=== PATIENT | female | born 1965 | race Caucasian/White ===

== ENCOUNTER 2017-10-25 17:58 | Inpatient (IN) | payer BC ==
[2017-10-25] MEDS ORDERED: DILAUDID INJ ONE (18:25)
[2017-10-25] MEDS ORDERED: PHENERGAN INJ 25 MG ONE (18:25)
[2017-10-25] MEDS: DILAUDID INJ IVP PRN ×2 (18:38→22:43)
[2017-10-25] MEDS: NS 1000 ML 1,000 ML IV SCH (18:38)
[2017-10-25] MEDS: PHENERGAN INJ 25 MG IV PRN ×2 (18:39→22:40)
[2017-10-25 18:57] LABS: BASOPHILS # (AUTO) 0.1 X10^3/uL (0.0-0.1); EOSINOPHILS # (AUTO) 0.2 x10^3/uL (0.0-0.2); EOSINOPHILS % (AUTO) 2.1 % (0.9-2.9); HEMATOCRIT 36.5 % (36.0-47.0); HEMOGLOBIN 12.3 g/dL (12.0-16.0); LYMPHOCYTES # (AUTO) 1.2 X10^3/uL (1.3-2.9); LYMPHOCYTES % (AUTO) 13.5 % (21.0-51.0); MEAN CORPUSCULAR HEMOGLOBIN 26.8 pg (27.0-34.0); MEAN CORPUSCULAR HGB CONC 33.6 g/dL (33.0-35.0); MEAN CORPUSCULAR VOLUME 79.7 fL (80.0-100.0); MEAN PLATELET VOLUME 7.5 fL (7.4-11.0); MONOCYTES # (AUTO) 0.4 x10^3/uL (0.3-0.8); MONOCYTES % (AUTO) 4.6 % (0.0-13.0); NEUTROPHILS # (AUTO) 6.9 x10^3/uL (2.2-4.8); NEUTROPHILS % (AUTO) 78.8 % (42.0-75.0); PLATELET COUNT 366 X10^3/uL (150.0-450.0); RED BLOOD COUNT 4.59 X10^6/uL (3.5-5.4); RED CELL DISTRIBUTION WIDTH 15.3 % (11.6-16.5); WHITE BLOOD COUNT 8.7 X10^3/uL (3.6-10.0)
[2017-10-25 19:24] LABS: ALANINE AMINOTRANSFERASE 35 Units/L (12-78); ALBUMIN 3.5 g/dL (3.4-5.0); ALKALINE PHOSPHATASE 149 Units/L (46-116); AMYLASE 61 Units/L (25-115); ASPARTATE AMINO TRANSFERASE 17 Units/L (15-37); BLOOD UREA NITROGEN 9 mg/dL (7-18); CALCIUM 8.9 mg/dL (8.5-10.1); CARBON DIOXIDE 25.8 mmol/L (21-32); CHLORIDE 106 mmol/L (98-107); CKMB % 1.4 % (<4); COR NA(FOR HYPERGLY) 143 mmol/L (136-145); CREATINE KINASE 72 Units/L (26-192); CREATINE KINASE MB < 1.0 ng/mL (0-4.0); CREATININE 1.02 mg/dL (0.55-1.02); LIPASE 64 Units/L (73-393); SODIUM 143 mmol/L (136-145); TOTAL PROTEIN 7.4 g/dL (6.4-8.2); TROPONIN I < 0.02 ng/mL (0-1.5); eGFR BLACK RACES > 60 (>60); eGFR NON BLACK RACES > 60 (>60)
[2017-10-25 19:51] VITALS: BMI 34.5
[2017-10-25] MEDS ORDERED: FLUVIRIN IM ONE ×2 (19:51→22:30)
[2017-10-25 20:01] LABS: BILIRUBIN,URINE NEGATIVE (NEGATIVE); BLOOD/HEMOGLOBIN,URINE NEGATIVE (NEGATIVE); GLUCOSE, URINE NEGATIVE (NEGATIVE); KETONES,URINE NEGATIVE (NEGATIVE); LEUKOCYTE ESTERASE ,URINE NEGATIVE (NEGATIVE); NITRITES,URINE NEGATIVE (NEGATIVE); PROTEIN,URINE NEGATIVE (NEGATIVE); UROBILINOGEN,URINE NORMAL (NORMAL)
[2017-10-25 20:06] LABS: APPEARANCE,URINE CLEAR (CLEAR); COLOR,URINE YELLOW (YELLOW)
--- NOTE | 2017-10-25 20:17 | CT ---
HISTORY: Syncope, severe headache and nausea Study: CT brain without contrast Comparison: None Technique: Multiple axial images of the brain were obtained from the skull base to the vertex without administra tion of IV contrast. Automated exposure control (AEC) was utilized to adjust the MA and/or kV accordi ng to patient size. Findings: There is no acute intracranial hemorrhage. The brain parenchyma is normal in density. There is a CS F density mass within in the left middle cranial fossa anterior to the left temporal lobe measuring 2 .1 x 3.4 cm. It results in mass effect upon the anterior temporal lobe and partial effacement of the temporal horn of the left lateral ventricle. There is subtle scalloping of the adjacent calvarium sug gesting this is likely chronic. Except for the partial effacement of the temporal horn of the left lateral ventricle, ventricles appe ar normal without evidence of obstructive hydrocephalus. Basilar cisterns are patent. Gamez matter -w fariba matter interface is distinct. The bilateral mastoid air cells and included paranasal sinuses are predominantly clear. There is no acute osseous abnormality. IMPRESSION: 1. CSF density mass within the left middle cranial fossa, anterior to the left temporal lobe as disc ussed above. It exerts mass effect on the adjacent temporal lobe. There is subtle scalloping suggesti ve the adjacent calvarium suggesting this is likely chronic. Considerations include an arachnoid cyst or an epidermoid cyst. Further assessment with contrast-enhanced brain MRI is recommended. Depending on symptoms and clinical picture this could be performed on an outpatient basis. Prior CT exams woul d be helpful to assess for stability if available. Reported By:
[2017-10-25 20:33] LABS: RBC,URINE NONE SEEN /HPF (NEGATIVE)
[2017-10-25 20:34] LABS: AMORPHOUS SEDIMENT,UR 1+ /HPF (NEGATIVE); BACTERIA,URINE NEGATIVE /HPF (NEGATIVE); SQUAMOUS EPITHELIAL CELL,UR FEW /HPF (NEGATIVE)
[2017-10-26] MEDS: DILAUDID INJ IVP PRN ×4 (02:37→19:25)
[2017-10-26] MEDS: PHENERGAN INJ 25 MG IV PRN ×4 (02:37→17:50)
[2017-10-26 03:34] LABS: ALANINE AMINOTRANSFERASE 31 Units/L (12-78); ALBUMIN 3.4 g/dL (3.4-5.0); ALKALINE PHOSPHATASE 140 Units/L (46-116); ASPARTATE AMINO TRANSFERASE 15 Units/L (15-37); BLOOD UREA NITROGEN 8 mg/dL (7-18); CALCIUM 8.5 mg/dL (8.5-10.1); CARBON DIOXIDE 30.5 mmol/L (21-32); CHLORIDE 108 mmol/L (98-107); CREATININE 0.88 mg/dL (0.55-1.02); SODIUM 145 mmol/L (136-145); TOTAL PROTEIN 6.6 g/dL (6.4-8.2); eGFR BLACK RACES > 60 (>60); eGFR NON BLACK RACES > 60 (>60)
[2017-10-26 03:38] LABS: CKMB % 1.6 % (<4); CREATINE KINASE 64 Units/L (26-192); CREATINE KINASE MB < 1.0 ng/mL (0-4.0); TROPONIN I < 0.02 ng/mL (0-1.5)
[2017-10-26 03:41] LABS: BASOPHILS # (AUTO) 0.1 X10^3/uL (0.0-0.1); BASOPHILS % (AUTO) 1.1 % (0.2-1.0); EOSINOPHILS # (AUTO) 0.2 x10^3/uL (0.0-0.2); EOSINOPHILS % (AUTO) 2.3 % (0.9-2.9); HEMATOCRIT 35.3 % (36.0-47.0); HEMOGLOBIN 11.9 g/dL (12.0-16.0); LYMPHOCYTES # (AUTO) 2.1 X10^3/uL (1.3-2.9); LYMPHOCYTES % (AUTO) 26.2 % (21.0-51.0); MEAN CORPUSCULAR HEMOGLOBIN 27.1 pg (27.0-34.0); MEAN CORPUSCULAR HGB CONC 33.6 g/dL (33.0-35.0); MEAN CORPUSCULAR VOLUME 80.7 fL (80.0-100.0); MEAN PLATELET VOLUME 7.4 fL (7.4-11.0); MONOCYTES # (AUTO) 0.5 x10^3/uL (0.3-0.8); MONOCYTES % (AUTO) 6.2 % (0.0-13.0); NEUTROPHILS # (AUTO) 5.1 x10^3/uL (2.2-4.8); NEUTROPHILS % (AUTO) 64.2 % (42.0-75.0); PLATELET COUNT 347 X10^3/uL (150.0-450.0); RED BLOOD COUNT 4.38 X10^6/uL (3.5-5.4); RED CELL DISTRIBUTION WIDTH 15.1 % (11.6-16.5); WHITE BLOOD COUNT 7.9 X10^3/uL (3.6-10.0)
--- NOTE | 2017-10-26 04:24 | RAD ---
Acute abdominal series Indication: Severe abdominal pain with nausea Comparison: None available Findings: The trachea is midline. The cardiac silhouette is borderline enlarged. The lungs are clear without focal infiltrate or effusion. The bony thorax is unremarkable. Flat and upright evaluation of the abdomen demonstrates a normal bowel gas pattern. No pathological soft tissue mass or calcification can be observed. The bony structures are grossly intact. IMPRESSION: 1. Borderline cardiomegaly without acute airspace disease or CHF 2. No evidence for acute abdominal pathology identified. Reported By:
[2017-10-26] MEDS: NS 1000 ML 1,000 ML IV SCH ×3 (04:52→21:01)
[2017-10-26] MEDS ORDERED: ZOFRAN INJ 4 MG VIAL 16 MG, ATIVAN INJ 2 MG VIAL 1 MG, DECADRON INJ 10 MG in NS 50 ML I... IV ONE (09:15)
[2017-10-26 11:34] LABS: CKMB % 1.8 % (<4); CREATINE KINASE 56 Units/L (26-192); CREATINE KINASE MB < 1.0 ng/mL (0-4.0); TROPONIN I < 0.02 ng/mL (0-1.5)
--- NOTE | 2017-10-26 16:22 | MRI ---
HISTORY: Intractable headaches, abnormal CT scan of the brain Study: MRI of the brain done without and with IV gadolinium contrast Comparison: CT scan of the brain done 10/25/2017. Technique: Multiple imaging planes and pulse sequences were utilized in evaluating the brain by [facility] resonance imaging. Diffusion weighted imaging sequences and ADC maps were provided. Following IV gadolinium containing contrast material administration, axial and coronal T1 sequences were repeated. 20 cc of Omniscan was injected intravenously. Findings: There is a mass involving the anterior middle cranial fossa on the left. This measures about 2.1 by 2 by 3.7 cm. The mass measures CSF signal on all sequences and likely represents an arachnoid cyst. Th ere is no indication of contrast enhancement on the post contrasted sequences. Ventricular size is no rmal. There is no evidence of infarct, edema or hemorrhage. Brainstem and cerebellum are normal. IMPRESSION: Findings most compatible with arachnoid cyst involving the left anterior middle cranial fossa. No oth er findings of significance are seen. Reported By:
--- NOTE | 2017-10-26 17:29 | DR.H&P ---
H&P - History & Physical for Day of: H&P Date: 10/25/17 - Chief Complaint Chief Complaint: islas, dizziness, vomiting - Allergies Allergies/Adverse Reactions: Allergies Allergy/AdvReac Type Severity Reaction Status Date / Time No Known Drug Allergies Allergy Verified 10/25/17 18:23 - History of Present Illness History of Present Illness: the patient is a 52-year-old white female who was a direct admit with intractable headache, nausea vomiting, and dizziness. Patient states she has a history of headaches but over the last week it has been very severe with a new onset of dizziness nausea and vomiting. Patient has a history of a "cyst on her brain". Patient states she takes a low-dose blood pressure medication. Plan to admit patient for further evaluation of intractable headache. Treatment with IV pain and nausea medication, admission labs, CT of the head on admission - Past Medical History Past Medical History: GERD, Headaches, Hypertension - Past Surgical History Surgical History: Cholecystectomy, Tonsillectomy - Family History Family Medical History: Cancer, Hypertension - Social History Does patient currently use any type of tobacco product: No Have you used tobacco products in the last 12 months: No Alcohol Use: None Drug Use: None - Medications Home Medications: Levothyroxine Sodium 25 mcg PO DAILY 10/25/17 [History Confirmed 10/25/17] Lisinopril [Prinivil] 10 mg PO DAILY 10/25/17 [History Confirmed 10/25/17] Metoprolol Succinate Ext Rel [Toprol Xl] 50 mg PO DAILY 10/25/17 [History Confirmed 10/25/17] Paroxetine HCl [Paxil] 20 mg PO DAILY 10/25/17 [History Confirmed 10/25/17] - Review of Systems Constitutional: No Symptoms Reported Eyes: No Symptoms Reported ENT: No Symptoms Reported Respiratory: No Symptoms Reported Cardiovascular: No Symptoms Reported Gastrointestinal: No Symptoms Reported, Nausea, Vomiting Genitourinary: No Symptoms Reported Musculoskeletal: No Symptoms Reported Skin: No Symptoms Reported Neurological: Other (dizziness) - Physical Exam Vital Signs: Temperature 98.5 F Pulse Rate [Right Radial] 94 Respiratory Rate 20 Blood Pressure [Right Arm] 126/76 O2 Sat by Pulse Oximetry 92 Oriented: Normal Eyes: Normal Ear: Normal Throat: Normal Respiratory: Clear Throughout Cardiovascular: Normal : Normal Auscultation: Bowel Sounds: Normal Palpation: Normal Tenderness: Normal Skin: Normal Musculoskeletal: Normal Psychiatric: Normal Affect: Anxious Speech Pattern: Clear, Appropriate - Assessment/Plan (1) Intractable headache Status: Acute Plan: admit, pain and nausea control. CT head, bp monitoring, admission labs (2) Dizziness Status: Acute (3) Nausea & vomiting Status: Acute
--- NOTE | 2017-10-26 17:39 | PCM.PROG ---
Progress Note - Progress Note for Day of Date: 10/26/17 - Subjective Subjective: THE PATIENT IS A 52-YEAR-OLD WHITE FEMALE ADMITTED WITH INTRACTABLE HEADACHE AND DIZZINESS. PATIENT IS NOTHING BY MOUTH THIS MORNING, mri ORDERED FOR THIS MORNI. wE WILL REPEAT A.M. LABS INCLUDING A THYROID PANEL. RESUME PATIENT'S HOME MEDICATION, SUPPLEMENTAL o2 - Past Medical Family Social History Past Med/Fam/Surg Hx: No changes since H&P Allergies: Allergies No Known Drug Allergies Allergy (Verified 10/25/17 18:23) - Review of Systems ROS: No change since H&P - Vital Signs and I&O's Vital Signs: Temperature 98.5 F Pulse Rate [Right Radial] 94 Respiratory Rate 20 Blood Pressure [Right Arm] 126/76 O2 Sat by Pulse Oximetry 92 Intake and Output: Intake & Output 10/24/17 10/25/17 10/26/17 10/27/17 11:59 11:59 11:59 11:59 Intake Total 347 0 Balance 347 0 - Physical Exam Oriented: Normal Eyes: Normal Ear: Normal Throat: Normal Respiratory: Normal Cardiovascular: Normal : Normal Auscultation: Bowel Sounds: Normal Tenderness: Normal Skin: Normal Musculoskeletal: Normal Psychiatric: Normal Affect: Anxious Speech Pattern: Clear, Appropriate - Laboratory and Diagnostics Result Diagrams: 10/26/17 02:55 10/26/17 02:55 Labs: 10/25/17 19:40 Urine,Clean Catch Urine Culture - Preliminary Laboratory WBC 7.9 X10^3/uL (3.6-10.0) 10/26/17 02:55 RBC 4.38 X10^6/uL (3.5-5.4) 10/26/17 02:55 Hgb 11.9 g/dL (12.0-16.0) L 10/26/17 02:55 Hct 35.3 % (36.0-47.0) L 10/26/17 02:55 MCV 80.7 fL (80.0-100.0) 10/26/17 02:55 MCH 27.1 pg (27.0-34.0) 10/26/17 02:55 MCHC 33.6 g/dL (33.0-35.0) 10/26/17 02:55 RDW 15.1 % (11.6-16.5) 10/26/17 02:55 Plt Count 347 X10^3/uL (150.0-450.0) 10/26/17 02:55 MPV 7.4 fL (7.4-11.0) 10/26/17 02:55 Neut % 64.2 % (42.0-75.0) 10/26/17 02:55 Lymph % 26.2 % (21.0-51.0) 10/26/17 02:55 [place] % 6.2 % (0.0-13.0) 10/26/17 02:55 Eos % 2.3 % (0.9-2.9) 10/26/17 02:55 Baso % 1.1 % (0.2-1.0) H 10/26/17 02:55 Neut # 5.1 x10^3/uL (2.2-4.8) H 10/26/17 02:55 Lymph # 2.1 X10^3/uL (1.3-2.9) 10/26/17 02:55 [place] # 0.5 x10^3/uL (0.3-0.8) 10/26/17 02:55 Eos # 0.2 x10^3/uL (0.0-0.2) 10/26/17 02:55 Baso # 0.1 X10^3/uL (0.0-0.1) 10/26/17 02:55 Absolute Nucleated RBC 0.1 /100WBC 10/26/17 02:55 Sodium 145 mmol/L (136-145) 10/26/17 02:55 Corrected Sodium TNP 10/26/17 02:55 Potassium 3.7 mmol/L (3.5-5.1) 10/26/17 02:55 Chloride 108 mmol/L (98-107) H 10/26/17 02:55 Carbon Dioxide 30.5 mmol/L (21-32) 10/26/17 02:55 BUN 8 mg/dL (7-18) 10/26/17 02:55 Creatinine 0.88 mg/dL (0.55-1.02) 10/26/17 02:55 Est GFR (MDRD) Af Amer > 60 (>60) 10/26/17 02:55 Est GFR (MDRD) Non-Af > 60 (>60) 10/26/17 02:55 Glucose 92 mg/dL (65-99) 10/26/17 02:55 Calcium 8.5 mg/dL (8.5-10.1) 10/26/17 02:55 Corrected Calcium TNP 10/26/17 02:55 Total Bilirubin 0.40 mg/dL (0.2-1.0) 10/26/17 02:55 AST 15 Units/L (15-37) 10/26/17 02:55 ALT 31 Units/L (12-78) 10/26/17 02:55 Alkaline Phosphatase 140 Units/L (46-116) H 10/26/17 02:55 Creatine Kinase 56 Units/L (26-192) 10/26/17 11:00 CK-MB (CK-2) < 1.0 ng/mL (0-4.0) 10/26/17 11:00 CK/CKMB % Calc 1.8 % (<4) 10/26/17 11:00 Troponin I < 0.02 ng/mL (0-1.5) 10/26/17 11:00 Total Protein 6.6 g/dL (6.4-8.2) 10/26/17 02:55 Albumin 3.4 g/dL (3.4-5.0) 10/26/17 02:55 Globulin 3.2 g/dL (2.5-4.5) 10/26/17 02:55 Albumin/Globulin Ratio 1.1 Ratio (1.1-2.1) 10/26/17 02:55 Amylase 61 Units/L (25-115) 10/25/17 18:30 Lipase 64 Units/L (73-393) L 10/25/17 18:30 Specimen Type Clean catch urine 10/25/17 19:38 Urine Color Yellow (YELLOW) 10/25/17 19:38 Urine Appearance Clear (CLEAR) 10/25/17 19:38 Urine pH 7.0 (5.0 - 8.0) 10/25/17 19:38 Ur Specific [place] 1.015 (1.000-1.030) 10/25/17 19:38 Urine Protein Negative (NEGATIVE) 10/25/17 19:38 Urine Glucose (UA) Negative (NEGATIVE) 10/25/17 19:38 Urine Ketones Negative (NEGATIVE) 10/25/17 19:38 Urine Occult Blood Negative (NEGATIVE) 10/25/17 19:38 Urine Nitrite Negative (NEGATIVE) 10/25/17 19:38 Urine Bilirubin Negative (NEGATIVE) 10/25/17 19:38 Urine Urobilinogen Normal (NORMAL) 10/25/17 19:38 Ur Leukocyte Esterase Negative (NEGATIVE) 10/25/17 19:38 Urine RBC None seen /HPF (NEGATIVE) 10/25/17 19:38 Urine WBC Rare /HPF (NEGATIVE) 10/25/17 19:38 Ur Squamous Epith Cells Few /HPF (NEGATIVE) 10/25/17 19:38 Amorphous Sediment 1+ /HPF (NEGATIVE) 10/25/17 19:38 Urine Bacteria Negative /HPF (NEGATIVE) 10/25/17 19:38 Ur Culture Indicated? Yes/culture set up 10/25/17 19:38 H. pylori IgG Antibody Negative (NEGATIVE) 10/25/17 18:30 - Plan (1) Intractable headache Status: Acute Plan: MRI ORDERED FOR THIS AM, PT NPO. CONTINUE PAIN AND NAUSEA MANAGEMENT, RESUME HOME MEDS, TORADOL IV X 1 DOSE, SUPPLEMENTAL O2. BP MONITORING (2) Dizziness Status: Acute (3) Nausea & vomiting Status: Acute
[2017-10-26] MEDS ORDERED: TORADOL 30 MG VIAL IVP SCH (18:00)
[2017-10-27 06:11] LABS: BASOPHILS # (AUTO) 0.1 X10^3/uL (0.0-0.1); BASOPHILS % (AUTO) 1.2 % (0.2-1.0); HEMATOCRIT 36.4 % (36.0-47.0); HEMOGLOBIN 12.2 g/dL (12.0-16.0); LYMPHOCYTES % (AUTO) 11.3 % (21.0-51.0); MEAN CORPUSCULAR HEMOGLOBIN 26.8 pg (27.0-34.0); MEAN CORPUSCULAR HGB CONC 33.5 g/dL (33.0-35.0); MEAN CORPUSCULAR VOLUME 80.1 fL (80.0-100.0); MEAN PLATELET VOLUME 7.8 fL (7.4-11.0); MONOCYTES # (AUTO) 0.3 x10^3/uL (0.3-0.8); MONOCYTES % (AUTO) 3.7 % (0.0-13.0); NEUTROPHILS # (AUTO) 7.1 x10^3/uL (2.2-4.8); NEUTROPHILS % (AUTO) 83.8 % (42.0-75.0); PLATELET COUNT 390 X10^3/uL (150.0-450.0); RED BLOOD COUNT 4.55 X10^6/uL (3.5-5.4); RED CELL DISTRIBUTION WIDTH 15.1 % (11.6-16.5); WHITE BLOOD COUNT 8.4 X10^3/uL (3.6-10.0)
[2017-10-27] MEDS: NS 1000 ML 1,000 ML IV SCH ×3 (06:19→23:00)
[2017-10-27 06:37] LABS: ALANINE AMINOTRANSFERASE 32 Units/L (12-78); ALBUMIN 3.6 g/dL (3.4-5.0); ALKALINE PHOSPHATASE 145 Units/L (46-116); ASPARTATE AMINO TRANSFERASE 14 Units/L (15-37); BLOOD UREA NITROGEN 8 mg/dL (7-18); CALCIUM 9.4 mg/dL (8.5-10.1); CARBON DIOXIDE 28.4 mmol/L (21-32); CHLORIDE 103 mmol/L (98-107); COR NA(FOR HYPERGLY) 141 mmol/L (136-145); SODIUM 141 mmol/L (136-145); TOTAL PROTEIN 7.6 g/dL (6.4-8.2); TSH (3RD GENERATION) 1.488 uIU/mL (0.358-3.74); eGFR BLACK RACES > 60 (>60); eGFR NON BLACK RACES > 60 (>60)
[2017-10-27 07:21] LABS: ERYTHROCYTE SEDIMENTATION RATE 13 MM/HOUR (0-20)
[2017-10-27] MEDS: TOPROL XL PO SCH (08:07)
[2017-10-27] MEDS: PAXIL PO SCH (08:07)
[2017-10-27] MEDS: ZESTRIL TAB 10 MG PO SCH (08:08)
[2017-10-27] MEDS: SYNTHROID 25 mcg TAB PO SCH (08:08)
[2017-10-27] MEDS: DILAUDID INJ IVP PRN ×2 (09:02→17:20)
[2017-10-27] MEDS: PHENERGAN INJ 25 MG IV PRN ×2 (09:02→17:24)
[2017-10-27] MEDS ORDERED: COLACE CAP 100 MG PO PRN (09:07)
[2017-10-27] MEDS ORDERED: MILK OF MAGNESIA PO PRN (09:07)
[2017-10-27] MEDS: PEPCID 20 MG IV PREMIX* 20 MG/50 ML BAG IV SCH ×2 (10:02→22:00)
[2017-10-27] MEDS: LEVSIN/MAALOX/LIDOC VISC PO SCH ×4 (10:02→22:41)
[2017-10-27] MEDS: ANTIVERT TAB 25 MG PO SCH ×3 (10:02→22:00)
--- NOTE | 2017-10-27 14:09 | DR.CONSULT ---
Consult - Consultation for Day of: Date: 10/27/17 - Chief Complaint Chief Complaint: Headache, nausea, vomiting and vertiginous dizziness. - Allergies Allergies/Adverse Reactions: Allergies Allergy/AdvReac Type Severity Reaction Status Date / Time No Known Drug Allergies Allergy Verified 10/25/17 18:23 - History of Present Illness History of Present Illness: NEUROLOGY CONSULTATION OCTOBER 27, 2017 : . Patient was seen and examined because of chronic headaches with throbbing characteristics. For the past 1 month patient is having associated vertiginous dizziness, nausea, vomiting. Patient denies any associated double vision or visual obscurations. Patient's dizziness is constant although there are times when dizziness is less severe. She describes her dizziness as spinning of the surroundings. This is regardless of movement of her head. The headaches are frontal in location with throbbing characteristics. The headaches and dizziness are occurring every day. These headaches occur after waking up without any prior warning.For the past 1 week patient has been going through flulike illness. ADMISSION NOTE : History of Present Illness: the patient is a 52-year-old white female who was a direct admit with intractable headache, nausea vomiting, and dizziness. Patient states she has a history of headaches but over the last week it has been very severe with a new onset of dizziness nausea and vomiting. Patient has a history of a "cyst on her brain". Patient states she takes a low-dose blood pressure medication. Plan to admit patient for further evaluation of intractable headache. Treatment with IV pain and nausea medication, admission labs, CT of the head on admission. - Past Medical History. Past Medical History: GERD, Headaches, Hypertension. - Past Surgical History. Surgical History: Cholecystectomy, Tonsillectomy. - Family History. Family Medical History: Cancer, Hypertension. - Social History. Does patient currently use any type of tobacco product: No. Have you used tobacco products in the last 12 months: No. Alcohol Use: None. Drug Use: None. - Medications. Home Medications: Levothyroxine Sodium 25 mcg PO DAILY 10/25/17 [History Confirmed 10/25/17]. Lisinopril [Prinivil] 10 mg PO DAILY 10/25/17 [History Confirmed ]. Metoprolol Succinate Ext Rel [Toprol Xl] 50 mg PO DAILY 10/25/17 [ History Confirmed 10/25/17]. Paroxetine HCl [Paxil] 20 mg PO DAILY 10/25/17 [ History Confirmed 10/25/17]. NEUROLOGICAL EXAMINATION ;. . Neurological examination: Cognitive status: Patient is awake alert oriented in time place and person. Speech: Speech is fluent, naming is intact , comprehension is also intact. Patient has no paraphasic errors. Cranial nerve examination : Second cranial nerve: Visual dsouza are intact on confrontation. Third fourth and sixth cranial nerve: Extraocular movements are full without any nystagmus. Pupils are 3.5 mm in size around equal and reactive to light. Fifth cranial nerve: Facial sensations are intact bilaterally. Seventh cranial nerve: Facial symmetry is intact bilaterally. Eighth cranial nerve: Hearing is intact bilaterally. Ninth and 10th cranial nerve: Palate is symmetrical bilaterally. 11th cranial nerve: Shoulder shrug is equal and symmetrical bilaterally. 12 cranial nerve: Tongue is in midline. Coordination: Finger to nose rapid alternating movements are intact. Gait: gait was not tested. Motor system examination: Tone is normal. Strength is 5 over 5 proximally as well as distally in upper and lower extremities. Deep tendon reflexes are +1 equal and symmetrical in upper and lower extremities. Plantars are flexor bilaterally. Sensory system examination: Patient has equal and symmetrical touch, temperature, pinprick sensation distally and proximally in upper and lower extremities. - Past Medical History Past Medical History: GERD, Headaches, Hypertension - Past Surgical History Surgical History: Cholecystectomy, Tonsillectomy - Family History Family Medical History: Cancer, Hypertension - Social History Does patient currently use any type of tobacco product: No Have you used tobacco products in the last 12 months: No Type of Tobacco Use: None Alcohol Use: None Drug Use: None - Medications Home Medications: Levothyroxine Sodium 25 mcg PO DAILY 10/25/17 [History Confirmed 10/25/17] Lisinopril [Prinivil] 10 mg PO DAILY 10/25/17 [History Confirmed 10/25/17] Metoprolol Succinate Ext Rel [Toprol Xl] 50 mg PO DAILY 10/25/17 [History Confirmed 10/25/17] Paroxetine HCl [Paxil] 20 mg PO DAILY 10/25/17 [History Confirmed 10/25/17] - Review of Systems Constitutional: See HPI Eyes: See HPI ENT: See HPI Respiratory: See HPI Cardiovascular: No Symptoms Reported Gastrointestinal: See HPI Genitourinary: No Symptoms Reported Musculoskeletal: No Symptoms Reported Skin: No Symptoms Reported Neurological: See HPI - Physical Exam Vital Signs: Temperature 98.4 F Pulse Rate [Right Radial] 70 Pulse Rate 90 Respiratory Rate 20 Blood Pressure [Right Arm] 135/79 O2 Sat by Pulse Oximetry 94 Oriented: Normal Eyes: Normal Ear: Normal Nose: Normal Throat: Normal Respiratory: Clear Throughout Cardiovascular: Normal : Normal Auscultation: Bowel Sounds: Normal Palpation: Normal Tenderness: Normal Skin: Normal Musculoskeletal: Normal Psychiatric: Normal Mood Description: Calm Affect: Normal Speech Pattern: Clear - Plan Plan: Patient was seen and examined because of intractable headaches associated with vertiginous dizziness, nausea and vomiting. Patient has a prior history of chronic headaches. For the past one month patient has been having associated vertiginous dizziness as well. This could be accompaniment of headaches. Patient is going through a flulike illness. The possibility of vestibular neuritis cannot be entirely ruled out. But patient is having dizziness for the past 1 month. Patient's neurological examination including the head impulse test is normal. I'm recommending management of headaches with Neurontin 200 mg at night. This could be increased to 300 mg after couple of days. This would be a preventative measure. To abort her headaches I'm recommending nonsteroidal anti-inflammatory medications in combination with 12.5 mg of promethazine 3-4 times a day as needed. Patient's MRI of the brain showed pre-existing arachnoid cyst. We will follow up.
--- NOTE | 2017-10-27 17:33 | VAS ---
HISTORY: Dizziness, hyperlipidemia, hypertension, headache Study: Carotid ultrasound Comparison: None Technique: Multiple sonographic images of the carotid arterial system were obtained bilaterally. Findings: The peak systolic velocity of the right ICA is 61 centimeters/second. The peak systolic velocity of t he left ICA is 71 centimeters/second. The ICA/CCA ratio on the right is 1.3. The ICA/CCA ratio on the left is 1.0. Bilateral antegrade vertebral flow is noted. IMPRESSION: No sonographic evidence of hemodynamically significant carotid stenosis is appreciated. Reported By:
[2017-10-27] MEDS ORDERED: MOTRIN TAB 400 MG PO PRN (19:47)
[2017-10-27] MEDS ORDERED: NEURONTIN CAP 100 MG PO SCH (21:00)
[2017-10-28] MEDS: ANTIVERT TAB 25 MG PO SCH (05:43)
[2017-10-28 06:25] LABS: BASOPHILS # (AUTO) 0.1 X10^3/uL (0.0-0.1); BASOPHILS % (AUTO) 0.9 % (0.2-1.0); EOSINOPHILS # (AUTO) 0.2 x10^3/uL (0.0-0.2); EOSINOPHILS % (AUTO) 2.8 % (0.9-2.9); HEMATOCRIT 32.9 % (36.0-47.0); HEMOGLOBIN 11.1 g/dL (12.0-16.0); LYMPHOCYTES % (AUTO) 23.7 % (21.0-51.0); MEAN CORPUSCULAR HEMOGLOBIN 27.6 pg (27.0-34.0); MEAN CORPUSCULAR HGB CONC 33.7 g/dL (33.0-35.0); MEAN PLATELET VOLUME 7.6 fL (7.4-11.0); MONOCYTES # (AUTO) 0.5 x10^3/uL (0.3-0.8); MONOCYTES % (AUTO) 5.6 % (0.0-13.0); NEUTROPHILS # (AUTO) 5.7 x10^3/uL (2.2-4.8); PLATELET COUNT 303 X10^3/uL (150.0-450.0); RED BLOOD COUNT 4.01 X10^6/uL (3.5-5.4); RED CELL DISTRIBUTION WIDTH 15.3 % (11.6-16.5); WHITE BLOOD COUNT 8.5 X10^3/uL (3.6-10.0)
[2017-10-28 06:35] LABS: ALANINE AMINOTRANSFERASE 25 Units/L (12-78); ALBUMIN 2.9 g/dL (3.4-5.0); ALKALINE PHOSPHATASE 111 Units/L (46-116); ASPARTATE AMINO TRANSFERASE 13 Units/L (15-37); BLOOD UREA NITROGEN 12 mg/dL (7-18); CALCIUM 8.2 mg/dL (8.5-10.1); CHLORIDE 108 mmol/L (98-107); COR CA(FOR HYPOALB) 9.1 mg/dL (8.5-10.1); CREATININE 0.87 mg/dL (0.55-1.02); SODIUM 145 mmol/L (136-145); TOTAL PROTEIN 6.1 g/dL (6.4-8.2); eGFR BLACK RACES > 60 (>60); eGFR NON BLACK RACES > 60 (>60)
[2017-10-28] MEDS: TOPROL XL PO SCH (08:55)
[2017-10-28] MEDS: SYNTHROID 25 mcg TAB PO SCH (08:55)
[2017-10-28] MEDS: PAXIL PO SCH (08:55)
[2017-10-28] MEDS: PEPCID 20 MG IV PREMIX* 20 MG/50 ML BAG IV SCH (08:55)
[2017-10-28] MEDS: ZESTRIL TAB 10 MG PO SCH (08:58)
[2017-10-28 09:42] LABS: STOOL FOR WBC NEGATIVE (NEGATIVE)
[2017-10-28] MEDS ORDERED: FLUVIRIN IM ONE (13:26)
[2017-10-28 13:38] VITALS: BP 133/72
== END 2017-10-28 13:45 | disposition home or self-care (01) | DRG 103 ==
LOC: MED/SURG 17:58
PROVIDERS: ADMIT Internal Medicine; ATTEND Internal Medicine
PROC: 3E0234Z Introduction of Serum, Toxoid and Vaccine into Muscle, Percutaneous Approach (ICD-10-PCS; principal; 2017-10-25)
DX: R51 Headache (principal); R42 Dizziness and giddiness; G93.0 Cerebral cysts; R11.2 Nausea with vomiting, unspecified; K21.9 Gastro-esophageal reflux disease without esophagitis; I10 Essential (primary) hypertension; R19.5 Other fecal abnormalities; Z23 Encounter for immunization
CPT/HCPCS: 36415; 70450; 70553; 74022; 80053; 81001; 82150; 82270; 82550; 82553; 83630; 83690; 84439; 84443; 84484; 85025; 85652; 86140; 86677; 87040; 87045; 87086; 87427; 87899; 90686; 93005; 93010; 93880; 94760; 95819; A4222; S0028; J1100; J1885; J2060; J2405; J2550